=== PATIENT | male | born 1965 | race Caucasian/White ===

== ENCOUNTER → 2018-08-28 11:30 | Outpatient (CLI) | payer BC, OTHER, SELFPAY ==
[2018-08-28 12:57] LABS: Alanine Aminotransferase 42 IU/L (21-72); Albumin 4.3 g/dL (3.5-5.0); Albumin Globulin Ratio 1.5 (1.0-2.8); Alkaline Phosphatase 44 U/L (38-126); Aspartate Aminotransferase 29 IU/L (17-59); BUN Creatinine Ratio 18.9 (6-22); Bilirubin Total 1.1 mg/dL (0.2-1.3); Blood Urea Nitrogen 17 mg/dL (9-20); Calcium 9.6 mg/dL (8.4-10.2); Carbon Dioxide 29 mmol/L (22-32); Chloride 103 mmol/L (98-107); Cholesterol 221 mg/dL (140-199); Estimated Glomerular Filt Rate > 60.0 mL/min (>60); Globulin 2.9 g/dL (1.7-4.1); Glucose 86 mg/dL (70-100); HDL Cholesterol 48 mg/dL (40-60); HEMOLYSIS 20 (0-50); LDL Cholesterol Calculated 148 mg/dL (<100); Potassium 4.9 mmol/L (3.4-5.1); Sodium 138 mmol/L (137-145); Total Protein 7.2 g/dL (6.3-8.2); Triglycerides 125 mg/dL (35-150)
== END ==
PROVIDERS: Visit Provider Internal Medicine
DX: Z13.1 Encounter for screening for diabetes mellitus (principal); Z13.6 Encounter for screening for cardiovascular disorders
CPT/HCPCS: 36415; 80053; 80061

== ENCOUNTER → 2019-01-05 11:26 | Outpatient (CLI) | payer BC, OTHER, SELFPAY ==
--- NOTE | 2019-01-05 11:29 | DI.RAD.S_ITS ---
PROCEDURE: XR KNEE LT 3V INDICATIONS: knee pain TECHNIQUE: 3 views of the knee were acquired. COMPARISON: [facility], CR, KNEE 3V LEFT, 09/20/2014, 16:16. FINDINGS: Bones: No fractures or dislocations. No suspicious bony lesions. Soft tissues: No joint effusion. No suspicious soft tissue calcifications. IMPRESSION: No trauma found. Source of pain is not seen. Dictated by: Dinesh Jalloh M.D. on 01/05/2019 at 12:24 Approved by: Dinesh Jalloh M.D. on 01/05/2019 at 12:24
--- NOTE | 2019-01-05 11:29 | DI.RAD.S_ITS ---
PROCEDURE: XR KNEE RT 3V INDICATIONS: knee pain TECHNIQUE: 3 views of the knee were acquired. COMPARISON: [facility], , KNEE 3V LEFT, 09/20/2014, 16:16. FINDINGS: Bones: No fractures or dislocations. No suspicious bony lesions. mild medial compartment degenerative knee joint osteoarthritis present, as indicated by medial compartment joint space narrowing. Soft tissues: No joint effusion. No suspicious soft tissue calcifications. IMPRESSION: No trauma found. Mild medial compartment knee joint osteoarthritis. Dictated by: Dinesh Jalloh M.D. on 01/05/2019 at 12:24 Approved by: Dinesh Jalloh M.D. on 01/05/2019 at 12:25
== END ==
PROVIDERS: PCP Internal Medicine; Visit Provider Internal Medicine
DX: M25.561 Pain in right knee (principal); M25.562 Pain in left knee; M17.11 Unilateral primary osteoarthritis, right knee
CPT/HCPCS: 73562

== ENCOUNTER 2019-02-15 07:46 | Day surgery (SDC) | payer BC, OTHER, SELFPAY ==
[2019-02-15 08:18] VITALS: BP 135/81; PULSE 70; RESP 16; TEMP 36.2; O2SAT 97; BMI 30.4
[2019-02-15] MEDS: SODIUM CHLORIDE 0.9% 1,000 ML 200 ML IV (08:35)
--- NOTE | 2019-02-15 08:56 | P.HP_ITS ---
History of Present Illness History of Present Illness Date Patient Seen: 02/15/19 Time Patient Seen: 08:56 Chief complaint: [id number] SCREENING COLONOSCOPY Narrative: Patient presents for colorectal screening. They have never had any previous examination for such. No personal or family history of colon cancer. On further history denies any recent gastrointestinal symptoms. No nausea, vomiting, abdominal pain, loss of appetite, unexplained weight loss, change in b owel habits, diarrhea, constipation, melena, hematochezia, or bright red blood per rectum. Patient History Medical History Back problem (Chronic ~2005) Chicken pox (Resolved ~1971) Degenerative disc disease (Chronic) Foot pain (Chronic ~2000) Gastric ulcer (Chronic ~1978) Right inguinal hernia (Resolved) Tinnitus (Chronic ~1999) Surgical History Anesthesia (Resolved) History of tonsillectomy and adenoidectomy (Resolved ~1971) S/P hernia surgery (Resolved ~2017) Family & Social History Social History: household members spouse Tobacco & Substance use: Smoking Status Former smoker Meds Home Medications and Allergies Home Medications Medication Instructions Recorded Confirmed Type meloxicam 15 mg tablet 15 mg PO DAILY #90 tab 01/05/19 02/15/19 Rx sodium,potassium,mag sulfates 17.5 177 ml PO DAILY #354 ml 01/20/19 02/15/19 Rx gram-3.13 gram-1.6 gram oral soln Allergies Allergy/AdvReac Type Severity Reaction Status Date / Time No Known Drug Allergies Allergy Verified 02/12/19 14:37 Review of Systems Review of Systems Narrative: A complete review of systems is negative except as noted in the HPI Exam Vital Signs (past 8 hours): - 02/15/19 08:18 Temperature 97.2 F L Pulse Rate 70 Respiratory Rate 16 Blood Pressure 135/81 Pulse Oximetry 97 Oxygen Delivery Method Room Air Narrative Exam Narrative: General-no acute distress, well nourished HEENT-moist mucous membranes, no scleral icterus Neck-supple, no lymphadenopathy Chest- non labored respirations, clear to auscultation bilaterally Cardiac-regular rate no peripheral edema Abdomen-soft, nontender, non distended Extremities-warm, well perfused Neurological-alert and oriented, no focal deficits Assessment & Plan Assessment and plan (1) Screening for colon cancer: Current visit: Yes Status: Acute (2) Umbilical hernia: Current visit: Yes Status: Acute Assessment & Plan narrative: The patient requires colorectal screening and colonoscopy is recommended. Technical details were discussed. Risks, benefits, alternatives explained. Risks including but not limited to myocardial infarction, aspiration, bleeding, pain, missed lesion, incomplete examination, need for further radiographic studies, colonic perforation, and need for major abdominal surgery were discussed. All questions were answered to their satisfaction, and they are in agreement with this plan. In addition he has a small reducible symptomatic umbilical hernia which he would like repaired. Will schedule for open umbilical hernia repair with mesh 03/09/19
[2019-02-15] MEDS: MIDAZOLAM 5 MG/5 ML VIAL IV (09:06)
[2019-02-15] MEDS: fentaNYL 250 MCG/5 ML INJ IV (09:07)
--- NOTE | 2019-02-15 09:30 | PM.OP.ENDO ---
Operative Date/Time/Diagnoses Date of procedure: 02/15/19 Time of procedure: 09:30 Pre-op diagnosis: Screening colonoscopy Post-op diagnosis: same Procedure & Clinicians Study performed: Colonoscopy Same procedure as scheduled: Yes Indications: 53-year-old male no prior colonoscopy presents for routine screening Surgeon: Rikki Zambrano Procedure Notes SCOAP/Timeout: Performed Procedure in detail: Patient placed in left lateral decubitus position. Time out was performed. Procedural sedation was administered with Versed and Fentanyl. A rectal exam demonstrated no external hemorrhoids no internal masses. Colonoscopy scope was placed into the rectum and advanced through the colon to the cecum. The ileocecal valve was identified. The scope was then slowly withdrawn examining colon thoroughly in all directions. The colonoscopy was notable for the following 1. Diverticulosis 2. Grade 1-2 internal hemorrhoids 3. Moderate quality prep Scope withdrawal time: 7 Sedation minutes: 27 Findings: diverticulosis and internal hemorrhoids Specimen(s): none sent Complications: none Impression: Diverticulosis Post-procedure Recommendations: Colonscopy in 10 years Disposition: same day surgery
[2019-02-15 09:35] VITALS: BP 125/73; PULSE 68; RESP 11; TEMP 36.4; O2SAT 94
[2019-02-15 09:39] VITALS: BP 114/70; PULSE 64; RESP 11; O2SAT 63
[2019-02-15 09:44] VITALS: BP 114/67; PULSE 64; RESP 11; O2SAT 93
[2019-02-15 10:00] VITALS: BP 121/69; PULSE 71; RESP 12; O2SAT 98
[2019-02-15 10:35] VITALS: BP 118/78; PULSE 62; RESP 20; TEMP 36.4; O2SAT 95
== END 2019-02-15 10:44 | disposition home or self-care (01) ==
PROVIDERS: PCP Internal Medicine; Visit Provider Surgery
PROC: 0DJD8ZZ Inspection of Lower Intestinal Tract, Via Natural or Artificial Opening Endoscopic (ICD-10-PCS; CPT 45378; principal; 2019-02-15 09:15)
DX: Z12.11 Encounter for screening for malignant neoplasm of colon (principal); K57.30 Diverticulosis of large intestine without perforation or abscess without bleeding; K64.0 First degree hemorrhoids
CPT/HCPCS: 45378; 99152; J2250; J3010

== ENCOUNTER 2019-03-09 08:25 | Day surgery (SDC) | payer BC, OTHER, SELFPAY ==
[2019-03-08 07:49] VITALS: BMI 30.5
[2019-03-09 08:33] VITALS: BP 125/83; PULSE 78; RESP 20; TEMP 36.2; O2SAT 96; BMI 30.5
[2019-03-09 08:45] VITALS: BMI 30.5
[2019-03-09] MEDS: LACTATED RINGERS 1,000 ML 100 ML IV (08:48)
--- NOTE | 2019-03-09 08:55 | PM.PREOP ---
Pre-operative Note Interval Note History & Physical reviewed/Exam performed by Physician: Yes Changes to H&P: No
[2019-03-09] MEDS: CEFAZOLIN 2 GM/100 ML FROZ.PIGGY IV (09:16)
--- NOTE | 2019-03-09 09:33 | SUR.OPER ---
Supine on padded OR bed, head on pillow, arms secured on padded arm boards at <90 degrees abduction, legs uncrossed, safety belt at thigh, tape over blanket over lower legs.
[2019-03-09] MEDS: BUPIVACAINE 0.25% (PF) VIAL 30 ML INJ (09:38)
[2019-03-09 09:52] VITALS: BP 94/45; PULSE 75; RESP 9; TEMP 36.2; O2SAT 93
[2019-03-09 09:56] VITALS: BP 92/60; PULSE 73; RESP 10; O2SAT 91
[2019-03-09 10:03] VITALS: BP 110/71; PULSE 78; RESP 8; O2SAT 90
[2019-03-09 10:17] VITALS: BP 115/72; PULSE 71; RESP 12; O2SAT 91
--- NOTE | 2019-03-09 10:24 | P.OP_ITS ---
Operative Date/Time/Diagnoses Date of procedure: 03/09/19 Time of procedure: 10:24 Pre-op diagnosis: umbilical hernia Post-op diagnosis: same Procedure & Clinicians Procedure: open umbilical hernia repair Same procedure as scheduled: Yes Indications: 54 y.o male with a symptomatic umbilical hernia Surgeon: Rikki Zambrano Anesthesia Type: General Operative Notes Findings: 1 cm umbilical fascial defect Specimen(s): none sent Estimated Blood Loss (mL): 5 Procedure in detail: Patient was brought to the operating room placed supine on the table. Bilateral lower extremity compression devices were applied. General anesthesia was inducedand they were intubated with an endotracheal tube. They received 2 g of Ancef prior to skin incision. They were prepped and draped in sterile fashion. A time-out was performed ensure the correct patient procedure necessary equipment within the operating room. A curvilinear incision was made inferior to the umbilicus. The subcutaneous tissues were divided. The umbilical hernia was identified and was dissected off the umbilicus and circumferentially. The umbilical hernia sac was opened carefully using [place] and contained viable omentum. The hernia sac was then closed with 3 0 Vicryl suture. The sac was reduced into the abdomen and the fascia was cleared from above. The fascial defect was approximately 1 cm in diameter. The fascial edges were then reapproximated with a [id number] 0 PDS suture. The subcutaneous tissues were reapproximated using 3 0 Vicryl skin closed with 4 0 Monocryl upon by the application of Dermabond and Steri-Strips. Sponge instrument count at the end of the operation was correct. Patient tolerated procedure well was extubated and transferred to postoperative care unit in stable condition. Complications: none Post-operative Condition: stable Disposition: same day surgery
[2019-03-09 10:30] VITALS: BP 116/72; PULSE 66; RESP 12; TEMP 36.1; O2SAT 91
== END 2019-03-09 10:45 | disposition home or self-care (01) ==
PROVIDERS: PCP Internal Medicine; Visit Provider Surgery
PROC: (CPT 49585; principal; 2019-03-09 09:45)
DX: K42.9 Umbilical hernia without obstruction or gangrene (principal)
CPT/HCPCS: 49585; J0690; J1100; J1885; J2250; J2405; J2704; J3010

== ENCOUNTER → 2019-11-07 14:37 | Outpatient (CLI) | payer OTHER, SELFPAY ==
[2019-11-08 17:35] LABS: COVID19 Sendout Not Detected (Not Detect)
== END ==
PROVIDERS: PCP Internal Medicine; Visit Provider Physician Assistant
DX: Z11.59 Encounter for screening for other viral diseases (principal)
CPT/HCPCS: 87635

== ENCOUNTER → 2020-01-30 11:54 | Outpatient (CLI) | payer OTHER, SELFPAY ==
[2020-01-31 20:10] LABS: COVID19 Sendout Not Detected (Not Detect)
== END ==
PROVIDERS: PCP Internal Medicine; Visit Provider Physician Assistant
DX: Z11.59 Encounter for screening for other viral diseases (principal)
CPT/HCPCS: 87635

== ENCOUNTER → 2022-05-30 15:22 | Outpatient (CLI) | payer OTHER, SELFPAY ==
--- NOTE | 2022-05-30 15:24 | DI.RAD.S_ITS ---
PROCEDURE: XR ACUTE ABDOMEN SERIES INDICATIONS: abd pain TECHNIQUE: One view chest and two views of the abdomen were acquired. COMPARISON: None. FINDINGS: Surgical changes and devices: None. Chest: Lungs are clear. Heart size is normal. No pleural effusions. No pneumoperitoneum. Abdomen: Bowel gas pattern is normal. No suspicious calcifications. Visualized solid organ contours appear normal. Bones: No suspicious bony lesions. IMPRESSION: Unremarkable acute abdominal series Approved by: Timo Williamson M.D. on 05/30/2022 at 19:56
== END ==
PROVIDERS: PCP Internal Medicine; Referring Provider Internal Medicine; Visit Provider Internal Medicine
DX: R10.9 Unspecified abdominal pain (principal)
CPT/HCPCS: 74022

== ENCOUNTER → 2022-06-15 11:29 | Outpatient (CLI) | payer OTHER, SELFPAY ==
[2022-06-15 13:43] LABS: Alanine Aminotransferase 90 IU/L (<50); Albumin 4.4 g/dL (3.5-5.0); Albumin Globulin Ratio 1.3 (1.0-2.8); Alkaline Phosphatase 49 U/L (38-126); Aspartate Aminotransferase 43 IU/L (17-59); BUN Creatinine Ratio 15.4 (6-22); Bilirubin Total 0.9 mg/dL (0.2-1.3); Blood Urea Nitrogen 14 mg/dL (9-20); Calcium 9.3 mg/dL (8.4-10.2); Carbon Dioxide 25 mmol/L (22-32); Chloride 102 mmol/L (98-107); Cholesterol 250 mg/dL (140-199); Estimated Glomerular Filt Rate > 60 mL/min (>60); Globulin 3.3 g/dL (1.7-4.1); Glucose 89 mg/dL (70-100); HDL Cholesterol 61 mg/dL (40-60); LDL Cholesterol Calculated 156 mg/dL (<100); Potassium 4.5 mmol/L (3.4-5.1); Sodium 138 mmol/L (137-145); Total Protein 7.7 g/dL (6.3-8.2); Triglycerides 167 mg/dL (35-150)
[2022-06-15 13:49] LABS: HEMOLYSIS < 15 (0-50)
== END ==
PROVIDERS: PCP Internal Medicine; Referring Provider Internal Medicine; Visit Provider Internal Medicine
DX: K57.30 Diverticulosis of large intestine without perforation or abscess without bleeding (principal); R31.9 Hematuria, unspecified; Z13.1 Encounter for screening for diabetes mellitus; Z13.220 Encounter for screening for lipoid disorders; Z13.6 Encounter for screening for cardiovascular disorders; Z12.5 Encounter for screening for malignant neoplasm of prostate
CPT/HCPCS: 36415; 80053; 80061; G0103

== ENCOUNTER → 2023-01-27 15:18 | Outpatient (CLI) | payer OTHER, SELFPAY ==
--- NOTE | 2023-01-27 16:14 | DI.MRI.S_ITS ---
PROCEDURE: MR KNEE LT WO CON INDICATIONS: pain in left knee TECHNIQUE: Noncontrast sagittal PD fast spin echo and T2 fast spin echo with fat saturation, sagittal 3-D FLASH with fat saturation; coronal T1 spin echo and PD fast spin echo with fat saturation, and axial PD fast spin echo with fat saturation through the knee. COMPARISON: None. FINDINGS: Image quality: Excellent. Menisci: There is a complex tear involving the root of the posterior horn of the patient's medial meniscus extending both to superior and inferior joint surfaces. Also present is a complex tear involving the body of the patient's medial meniscus extending both to superior and inferior joint surfaces with meniscal truncation suggesting longstanding tear and meniscal remodeling. Lateral meniscus appears normal. Cruciate ligaments: The anterior and posterior cruciate ligaments appear intact. Medial structures: The medial collateral ligament appears intact. The posterior oblique ligament, semimembranosus tendon insertions, oblique popliteal ligament, and meniscocapsular junction appear intact. Visualized portions of the pes anserinus tendons appear normal. No abnormal bursal fluid. Lateral structures: The lateral collateral ligament, long and short heads of the biceps femoris tendon appear intact. The popliteus tendon appears normal; the popliteofibular ligament appears intact. The posterosuperior and anteroinferior popliteomeniscal fascicles appear intact. The arcuate and fabellofibular ligaments appear intact, on either side of the lateral inferior geniculate artery. Iliotibial band appears normal. Anterior structures: The quadriceps and patellar tendons appear intact. There is a mild jumper's knee type pattern involving the proximal patellar tendon. Patellar alignment is normal. No femoral trochlear dysplasia or ventral trochlear prominence. No edema in the infrapatellar fat pad. Bones and cartilage: No bone marrow contusions or fractures. There is mild to moderate chondromalacia involving the patellofemoral joint . There is moderate chondromalacia involving the articular surface of the medial compartment. Remainder of the articular cartilage appears intact. Joint space: There is a small knee joint effusion.. A small Pizarro's cyst is present.. Normal appearing synovial plicae are incidentally noted. IMPRESSION: 1. Complex tear involving the root of the posterior horn of the patient's medial meniscus extending both to superior and inferior joint surfaces. 2. Complex tear involving the body of the patient's medial meniscus extending to superior and inferior joint surfaces with meniscal truncation suggesting longstanding tear. 3. Moderate chondromalacia articular surface of the medial compartment. 4. Mild to moderate chondromalacia patellofemoral joint. 5. Small knee joint effusion. 6. Small Pizarro's cyst. 7. Mild jumper's knee type pattern proximal patellar tendon. Dictated by: Chandu Chiang M.D. on 01/28/2023 at 8:18 Approved by: Chandu Chiang M.D. on 01/28/2023 at 8:28
== END ==
PROVIDERS: PCP Internal Medicine; Referring Provider Orthopaedic Surgery; Visit Provider Orthopaedic Surgery
DX: S83.232A Complex tear of medial meniscus, current injury, left knee, initial encounter (principal); M22.42 Chondromalacia patellae, left knee; M25.462 Effusion, left knee; M71.22 Synovial cyst of popliteal space [Baker], left knee; M25.562 Pain in left knee; M25.561 Pain in right knee
CPT/HCPCS: 73721

== ENCOUNTER → 2023-06-19 16:14 | Outpatient (CLI) | payer OTHER, SELFPAY ==
[2023-06-19 18:55] LABS: Prostate Specific Antigen Scrn 0.657 ng/mL (0.1-4.0)
== END ==
LOC: LAB 16:15
PROVIDERS: PCP Internal Medicine; Referring Provider Internal Medicine; Visit Provider Internal Medicine
DX: Z12.5 Encounter for screening for malignant neoplasm of prostate (principal)
CPT/HCPCS: 36415; G0103

== ENCOUNTER → 2023-11-04 | Outpatient (CLI) | payer OTHER, SELFPAY ==
--- NOTE | 2023-11-04 | DI.RAD.S_ITS ---
PROCEDURE: FL SHOULDER INJECTION MR/CT RT INDICATIONS: ROTATOR CUFF SYNDROME OF RIGHT SHOULDER COMPARISON: [facility], MR, MR SHOULDER RT W CON, 11/04/2023, 15:24. TECHNIQUE: The indications, alternatives, benefits, risks, and complications of the procedure were explained to the patient. Written informed consent was obtained and placed in the chart. The shoulder was examined fluoroscopically and a site for needle placement chosen for entry into the glenohumeral joint from an anterior approach. The skin was prepped and draped in a sterile fashion, and 1% lidocaine infiltrated from skin down to joint capsule. A spinal needle was inserted into the glenohumeral joint, and a small amount of iodinated contrast media injected to confirm intra-articular placement of the needle tip. This was followed by approximately 12 mL dilute solution of a gadolinium containing MR contrast agent. The needle was removed and a dressing was applied. The patient was given postprocedural instructions and sent to the MR suite for MR imaging. FINDINGS: A single fluoroscopic spot image demonstrates intra-articular location of injected iodinated contrast. IMPRESSION: Successful fluoroscopically guided administration of dilute Gadolinium solution into the shoulder joint for MR arthrogram. Procedure was performed by Dr. Gustavo Fuller. Dictated by: Joce Choi M.D. on 11/13/2023 at 8:22 Approved by: Joce Choi M.D. on 11/13/2023 at 8:24
--- NOTE | 2023-11-04 | DI.MRI.S_ITS ---
PROCEDURE: MR SHOULDER RT W CON INDICATIONS: ROTATOR CUFF SYNDROME OF RIGHT SHOULDER TECHNIQUE: After the administration of 12 mL of dilute intra-articular Gadolinium contrast, oblique coronal T1 and T2 spin echo with fat saturation, oblique sagittal T1 spin echo with and without fat saturation, oblique sagittal T2 fast spin echo with fat saturation, axial T1 spin echo with fat saturation through the shoulder. COMPARISON: [facility], CR, XR SHOULDER 2+ VIEWS RIGHT, 09/12/2023, 9:03. FINDINGS: Image quality: Excellent. Rotator cuff: Moderate tendinosis of the supraspinatus. There is near full thickness interstitial tear at the anterior footprint, measuring 1.0 cm on sagittal dimension. There is near full thickness, articular sided tear at the critical zone of the fiber, measuring 1.1 cm on sagittal dimension, extending to a focal full-thickness tear at the posterior fiber (series 7, image 14). Moderate tendinosis at the junction of the supraspinatus and infraspinatus with low-grade tear. Small amount of fluid tracking along the infraspinatus tendon. The teres minor is unremarkable. Mild tendinosis of the subscapularis with low-grade tear. No muscle edema or fatty atrophy. Bones and bursae: Moderate degenerative changes of the acromioclavicular joint. Type 1 acromion. No os acromiale. Mild subacromial/subdeltoid bursitis. Multifocal mild subchondral cystic changes in the humeral head, reactive. No focal chondral defect. Capsule and soft tissues: Superior labral tear, extending anteriorly to the anterior superior labrum. The extra-articular biceps tendon is unremarkable. The intra-articular biceps tendon is intact. Small amount of intra-articular contrast within the glenohumeral articulation. IMPRESSION: 1. Two area of near full-thickness tear of the supraspinatus with superimposed, focal full-thickness tear at the critical zone of the posterior fiber. 2. Low-grade tear at the junction of the supraspinatus and infraspinatus. 3. Low-grade tear of the subscapularis. 4. Moderate degenerative change of the acromioclavicular joint. 5. Labral tear. Dictated by: Haylee Silva M.D. on 11/05/2023 at 9:56 Approved by: Haylee Silva M.D. on 11/05/2023 at 10:10
[2023-11-04] MEDS: LIDOCAINE 1% 20 ML INJ (15:38)
[2023-11-04] MEDS: SODIUM CHLORIDE 0.9 % 20 ML VIAL IV (15:39)
== END ==
PROVIDERS: PCP Internal Medicine; Referring Provider Physician Assistant; Visit Provider Physician Assistant
DX: M75.111 Incomplete rotator cuff tear or rupture of right shoulder, not specified as traumatic (principal); S43.431A Superior glenoid labrum lesion of right shoulder, initial encounter
CPT/HCPCS: 23350; 73040; 73222; A9579; Q9967